=== PATIENT | female | born 1985 | race Caucasian/White ===

== ENCOUNTER 2020-08-31 22:12 | Emergency (ER) | payer OTHER ==
[~2020-08-31] VITALS: Ht 172.7 cm; Wt 88.9 kg
[~2020-08-31 22:12] MED LIST: ABILIFY10 MG; AMBIEN 10 MG TA10 MG PO; AUGMENTIN 875875 M1 PO; NORCO 5-325 TA1 EACH PO; PENICILLIN V P500 MG PO; TYLENOL325 MG PO; XANAX 1 MG TABLE1 MG PO; XANAX2 MG PO
[2020-08-31] MEDS ORDERED: VISTARIL50 MG PO (22:19)
[2020-08-31 23:08] LABS: ABSOLUTE NEUTROPHILS 4.9 thou/uL (1.4-8.2); BASOPHILS 0.5 % (0.0-2.0); HEMATOCRIT 38.5 % (37.0-47.0); LYMPHOCYTES 36.4 % (24.0-44.0); MCH 30.4 pg (26.0-34.0); MCHC 33.7 g/dL (28.0-37.0); MCV 90.3 fL (80.0-100.0); MONOCYTES 8.5 % (1.0-8.0); PLATELET COUNT 443 thou/uL (150-400); POLYS 51.6 % (36.0-66.0); RBC 4.26 mil/uL (4.20-5.00); RDW 13.4 % (10.5-14.5); WBC 9.6 thou/uL (4.0-11.0)
[2020-08-31 23:10] LABS: CALCIUM 8.9 mg/dL (8.5-10.1); CREATININE 0.9 mg/dL (0.6-1.0); POTASSIUM 3.9 mmol/L (3.5-5.1)
[2020-08-31 23:16] LABS: ALBUMIN 3.6 g/dL (3.4-5.0); TOTAL BILIRUBIN 0.2 mg/dL (0.2-1.0); TOTAL PROTEIN 7.3 g/dL (6.4-8.2)
[2020-09-01 01:50] VITALS: BP 113/64
== END 2020-09-01 01:49 | disposition home or self-care (01) ==
LOC: ER 22:12
PROVIDERS: Emergency Medicine
DX: R22.2 Localized swelling, mass and lump, trunk (principal); R10.9 Unspecified abdominal pain; Z98.890 Other specified postprocedural states; Z88.8 Allergy status to other drugs, medicaments and biological substances